=== PATIENT | male | born 1960 | race Caucasian/White ===

== ENCOUNTER → 2016-08-02 | Outpatient (CLI) | payer MEDICARE, OTHER ==
[2016-08-02 09:10] LABS: ADD SCAN DIFF NO
[2016-08-02 09:20] LABS: BASOPHIL # 0.1 10^3/ul (0.0-0.1); BASOPHILS % 1.2 % (0.0-2.0); EOSINOPHILS # 0.2 10^3/ul (0.0-0.5); EOSINOPHILS % 3.3 % (0.0-7.0); HEMATOCRIT 38.8 % (42.0-52.0); HEMOGLOBIN 12.9 g/dl (14.0-18.0); LYMPHOCYTES # 1.7 10^3/ul (0.8-2.9); LYMPHOCYTES % 23.3 % (15.0-51.0); MEAN CORPUSCULAR HEMOGLOBIN 33.1 pg (29.0-33.0); MEAN CORPUSCULAR HGB CONC 33.2 g/dl (32.0-37.0); MEAN CORPUSCULAR VOLUME 99.5 fl (82.0-101.0); MEAN PLATELET VOLUME 9.4 fl (7.4-10.4); MONOCYTE # 1.3 10^3/ul (0.3-0.9); MONOCYTES % 17.1 % (0.0-11.0); NEUTROPHILS % 54.3 % (39.0-77.0); PLATELET COUNT 222 10^3/UL (140-415); RED CELL DISTRIBUTION WIDTH 14.3 % (11.5-14.5); WHITE BLOOD COUNT 7.4 10^3/ul (4.8-10.8)
[2016-08-02 09:34] LABS: POTASSIUM 4.3 mmol/L (3.5-5.1)
[2016-08-02 09:37] LABS: CREATININE 6.32 mg/dl (0.61-1.24)
[2016-08-02 09:38] LABS: CALCIUM 8.2 mg/dl (8.4-10.2)
[2016-08-02 09:40] LABS: INR 1.13; PROTIME 14.5 Sec (12.2-14.2); PT RATIO 1.1
[2016-08-02 09:41] LABS: PARTIAL THROMBOPLASTIN TIME 31.8 Sec (25.0-35.0)
--- NOTE | 2016-08-02 13:59 | RADRPT ---
PROCEDURE: XR Chest. CLINICAL INDICATION: Preoperative. Renal failure. TECHNIQUE: Single frontal view. COMPARISON: None. FINDINGS: The lungs are clear. The heart is enlarged. There is no pleural effusion. There is no pneumothorax. IMPRESSION: 1. Cardiomegaly. 2. Otherwise normal chest x-ray. RPTAT: QQ .Emanuel Mccray MD, MD Date Time Electronically viewed and signed by .Emanuel Mccray MD, MD on 08/02/2016 13:59 .R/
--- NOTE | 2016-08-02 20:23 | RADRPT ---
Vent Rate: 76 bpm RR Interval: 0 msec [place] Interval: 174 msec QRS Duration: 108 msec QT Interval: 486 msec QTC Interval: 546 msec P-R-T [place]: 40 - -62 - 86 degrees Sinus rhythm with occasional premature ventricular complexes Left anterior fascicular block Nonspecific T wave abnormality Prolonged QT Abnormal ECG Electronically Signed By: Steve Patel [id number]
== END | disposition home or self-care (01) ==
LOC: LAB 08:49
PROVIDERS: ATTEND Student in an Organized Health Care Education/Training Program
DX: N18.6 End stage renal disease (principal)
CPT/HCPCS: 71010; 80048; 85025; 85610; 85730; 93005